=== PATIENT | male | born 1980 | race Caucasian/White ===

== ENCOUNTER 2023-12-19 21:31 | Emergency (ER) | payer OTHER ==
[2023-12-19] MEDS ORDERED: ALBU18HF2 IH (22:48)
[2023-12-19] MEDS ORDERED: FLUT1BLS11 IH (22:48)
[2023-12-19] MEDS ORDERED: ATOR10TA PO (22:48)
[2023-12-19] MEDS ORDERED: METF-440 PO (22:48)
[2023-12-19] MEDS ORDERED: GLIP5TAB13 PO (22:48)
== END 2023-12-19 22:30 | disposition left against medical advice (07) ==
LOC: ER 21:35
DX: M54.9 Dorsalgia, unspecified (principal); Z53.21 Procedure and treatment not carried out due to patient leaving prior to being seen by health care provider

== ENCOUNTER 2024-01-01 08:42 | Emergency (ER) | payer OTHER ==
[~2024-01-01] VITALS: Ht 180.3 cm; Wt 108.9 kg
[2024-01-01] MEDS: VANCOMYCIN IV 1,000 MG in IV DEXTROSE 5% 250 ML IV ONE (09:15)
[2024-01-01 09:27] LABS: BASOPHILS # (AUTO) 0.1 K/UL (0.0-0.2); BASOPHILS % (AUTO) 0.6 % (0.0-2.0); DIFFERENTIAL COMMENT 1; EOSINOPHILS # (AUTO) 0.2 K/uL (0.0-0.7); EOSINOPHILS % (AUTO) 1.9 % (0.0-7.0); HEMATOCRIT 38.9 % (36.7-47.1); HEMOGLOBIN 13.3 g/dL (12.5-16.3); LYMPHOCYTES # (AUTO) 1.9 K/uL (0.8-4.8); LYMPHOCYTES % (AUTO) 18.8 % (20.5-51.5); MEAN CORPUSCULAR HGB CONC 34 g/dL (32.5-36.3); MEAN CORPUSCULAR VOLUME 81.8 fL (73.0-96.2); MONOCYTES # (AUTO) 0.7 K/uL (0.1-1.30); MONOCYTES % (AUTO) 6.6 % (0.0-11.0); NEUTROPHILS # (AUTO) 7.3 K/uL (1.8-8.9); NEUTROPHILS % (AUTO) 72.1 % (38.5-71.5); PLATELET COUNT (AUTO) 240 K/uL (152-348); RED BLOOD CELL COUNT(AUTO) 4.75 MIL/uL (4.06-5.63); WHITE BLOOD COUNT (AUTO) 10.2 K/uL (3.6-10.2)
[2024-01-01 09:31] LABS: CALCIUM 8.8 mg/dL (8.5-10.1); CARBON DIOXIDE 30 mmol/L (21-32); CHLORIDE 100 mmol/L (98-107); CREATININE 1.1 mg/dL (0.6-1.3); GLUCOSE 116 mg/dL (74-106); POTASSIUM 2.9 mmol/L (3.5-5.1); SODIUM SERUM 139 mmol/L (136-145); UREA NITROGEN, BLOOD 12 mg/dL (7-18)
[2024-01-01 09:36] LABS: ACETAMINOPHEN < 2.0 ug/mL (10-30)
[2024-01-01 09:37] LABS: ETHANOL < 3 MG/DL (0-10)
[2024-01-01] MEDS ORDERED: PIPERACILLIN/TAZOBACTAM/D5W 50 ML IV ONE (09:42)
[2024-01-01] MEDS ORDERED: VANCOMYCIN IV 200 ML ONE (09:42)
[2024-01-01 09:45] LABS: ALANINE AMINOTRANSFERASE 39 U/L (16-63); ALKALINE PHOSPHATASE 85 U/L (50-136); ASPARTATE AMINOTRANSFERASE 34 U/L (15-37); BILIRUBIN,DIRECT 0.3 mg/dL (0.0-0.2); BILIRUBIN,TOTAL 0.7 mg/dL (0.2-1.0); NT-PRO BNP 33 pg/mL (0-125); TOTAL PROTEIN, SERUM 7.5 g/dL (6.4-8.2)
[2024-01-01] MEDS: PIPERACILLIN SODIUM/TAZOBACTAM 3.375 G in IV DEXTROSE 5% 50 ML IV ONE (09:55)
[2024-01-01] MEDS ORDERED: SULF1TAB48 PO (11:02)
[2024-01-01 12:25] VITALS: BP 122/71; TEMP 98; O2SAT 100
== END 2024-01-01 12:25 | disposition home or self-care (01) ==
LOC: ER 08:42
DX: L03.116 Cellulitis of left lower limb (principal); Z79.899 Other long term (current) drug therapy; Z20.822 Contact with and (suspected) exposure to COVID-19; Z59.00 Homelessness unspecified
CPT/HCPCS: 80076; 80048; 83880; 85025; 85730; 87426; 87040 ×2; 84484; 36415; 93005; 71045; 93970; 99285; 96365; 96366; 96368; 83605; 80299; 80320; J2543; J3370; A4606; A4663; G0480

== ENCOUNTER 2025-02-02 09:45 | Emergency (ER) | payer OTHER ==
[~2025-02-02] VITALS: Ht 177.8 cm; Wt 104.3 kg
[~2025-02-02 09:45] MED LIST: SULF1TAB48 PO
[2025-02-02 09:47] VITALS: BP 161/94
[2025-02-02] MEDS ORDERED: LIDOCAINE 5% PATCH TD ONE (10:35)
[2025-02-02] MEDS ORDERED: CYCLOBENZAPRINE HCL 10 MG TABLET ONE (10:35)
[2025-02-02] MEDS ORDERED: ACETAMINOPHEN 500 MG TABLET ONE (10:35)
[2025-02-02] MEDS: CYCLOBENZAPRINE HCL 10 MG TABLET PO ONE (10:41)
[2025-02-02] MEDS: ACETAMINOPHEN 500 MG TABLET PO ONE (10:43)
[2025-02-02] MEDS: LIDOCAINE 5% PATCH TD ONE (10:43)
[2025-02-02 11:20] LABS: PLATELET COUNT (AUTO) 465 K/uL (152-348); RED BLOOD CELL COUNT(AUTO) 4.52 MIL/uL (4.06-5.63); RED CELL DISTRIBUTION WIDTH 14.9 % (12.1-16.2); WHITE BLOOD COUNT (AUTO) 8.2 K/uL (3.6-10.2)
[2025-02-02 11:39] LABS: CREATININE 0.7 mg/dL (0.6-1.3); SODIUM SERUM 139.0 mmol/L (136-145); UREA NITROGEN, BLOOD 9.0 mg/dL (7-18)
[2025-02-02] MEDS: DEXAMETHASONE SOD PHOSPHATE 4 MG INJ IV ONE (12:30)
[2025-02-02] MEDS: KETOROLAC TROMETHAMINE 15 MG INJ IVP ONE (12:30)
[2025-02-02] MEDS ORDERED: IBUP-1955 PO (12:57)
[2025-02-02] MEDS ORDERED: CYCL5TAB PO (12:57)
[2025-02-02] MEDS ORDERED: LIDO30AD10 TP (12:57)
[2025-02-02] MEDS ORDERED: METH4TAB21 PO (12:57)
[2025-02-02 14:59] VITALS: BP 142/89; TEMP 98; O2SAT 98
== END 2025-02-02 13:35 | disposition home or self-care (01) ==
LOC: ER 09:45
DX: M54.50 Low back pain, unspecified (principal); G89.29 Other chronic pain; M47.816 Spondylosis without myelopathy or radiculopathy, lumbar region; M47.817 Spondylosis without myelopathy or radiculopathy, lumbosacral region; Z79.899 Other long term (current) drug therapy; Z86.2 Personal history of diseases of the blood and blood-forming organs and certain disorders involving the immune mechanism; M48.061 Spinal stenosis, lumbar region without neurogenic claudication; Z59.00 Homelessness unspecified; V89.1XXA Person injured in unspecified nonmotor-vehicle accident, nontraffic, initial encounter; Y93.55 Activity, bike riding; Y92.89 Other specified places as the place of occurrence of the external cause; Y99.8 Other external cause status
CPT/HCPCS: 36415; 71045; 72131; 85025; 85730; 86850; 86900; 86901; 87040; 98960; A4606; A4663; A9150